=== PATIENT | female | born 1965 | race American Indian/Alaskan Native ===

== ENCOUNTER 2024-10-24 10:42 | Emergency (ER) | payer MEDICAID, SELFPAY ==
[2024-10-24 11:18] VITALS: BP 165/93; PULSE 93; RESP 17; TEMP 36.8; O2SAT 95; BMI 43.4
--- NOTE | 2024-10-24 11:27 | EDNOTE_ITS ---
ED Extremity Problem RME/HPI General Chief complaint: Extremity Problem,Nontraumatic Stated complaint: LEFT LEG/ANKLE CAST COMING APART Time Seen by Provider: 10/24/24 11:27 Arrival date/time: 10/24/24 10:42 59-year-old female presents emergency department today stating that she had an injury to the left ankle on the and she was casted by specialist in [place]. Patient reports that she is a follow-up on the of this month patient reports that she developed a hole on the bottom of the cast and is as ignacio for help with her cast management Limitations: no limitations Related Data Previous Rx's ?Medication ?Instructions ?Recorded acetaminophen 500 mg capsule 1,000 mg (2 x 500 mg) PO Q8HR PRN 02/27/20 pain #60 caps sulfamethoxazole 800 1 tab PO BID #14 tabs mg-trimethoprim 160 mg tablet (Bactrim DS) Allergies Allergy/AdvReac Type Severity Reaction Status Date / Time latex Allergy Unknown DIFF Verified 09/19/23 09:48 BREATHING, MOUTH SWELLS naproxen Allergy Unknown Verified 09/19/23 09:48 tuberculin,PPD,multi-puncture AdvReac Unknown Rash Verified 09/19/23 09:48 Review of Systems Review of Systems Systems Reviewed: All systems reviewed, normal except as documented Constitutional Constitutional: Reports system reviewed and no additional complaints, except as documented, Denies fever(s) and Denies headache(s) Eyes Eyes: Reports system reviewed and no additional complaints, except as documented and Denies blurry vision ENT Ears, Nose, Mouth, and Throat: Reports system reviewed and no additional complaints, except as documented, Denies headache(s), Denies nasal congestion and Denies nasal discharge Cardiovascular Cardiovascular: Reports system reviewed and no additional complaints, except as documented, Denies chest pain and Denies dyspnea Respiratory Respiratory: Reports system reviewed and no additional complaints, except as documented, Denies chest congestion, Denies cough and Denies dyspnea Gastrointestinal Gastrointestinal: Reports system reviewed and no additional complaints, except as documented and Denies abdominal pain Musculoskeletal Musculoskeletal: Reports system reviewed and no additional complaints, except as documented and Reports other (Cast in place left ankle) Integumentary/Breasts Skin/Breast: Reports system reviewed and no additional complaints, except as documented and Denies rash Neurologic Neurologic: Reports system reviewed and no additional complaints, except as documented, Reports as per HPI and Denies headache(s) Past Medical History Past Medical History CARDIAC: Positive Hypertension; Negative Cardiac Disorders or Congestive Heart Failure RESPIRATORY: Negative Chronic Obstructive Pulmonary Disease (COPD) or Asthma GENITOURINARY: Negative Renal Disease ENDOCRINE: Negative Diabetes Mellitus Type 1 or Diabetes Mellitus Type 2 HEMATOLOGIC: Negative Sickle Cell Disease Surgical History SURGICAL: Positive Section Social History SMOKING STATUS: Never smoker SUBSTANCE USE: does not use ED Exam General Limitations: Present no limitations General appearance: Present alert and in no apparent distress Head Head exam: Present atraumatic Eye Eye exam: Present normal appearance, PERRL and EOMI ENT ENT exam: Present normal exam, normal oropharynx and mucous membranes moist Neck Neck exam: Present normal inspection, full ROM and trachea midline Chest Chest inspection: Present normal inspection and symmetric chest wall rise Respiratory Respiratory exam: Present normal lung sounds bilaterally Cardiovascular Cardiovascular exam: Present regular rate, normal rhythm and normal heart sounds Abdominal Exam Abdominal exam: Present soft and normal bowel sounds Extremities Exam Extremities exam: Present tenderness, normal capillary refill and other (Cast in place left leg) Back Exam Back exam: Present normal inspection and full ROM Neurological Exam Neurological exam: Present alert, oriented X3 and CN II-XII intact Psychiatric Psychiatric exam: Present normal affect and normal mood Skin Skin exam: Present warm, dry, intact and normal color Course Quality Measures none Vital Signs Vital signs: Vital Signs Temperature 98.2 F 10/24/24 11:18 Pulse Rate 93 10/24/24 11:18 Respiratory Rate 17 10/24/24 11:18 Blood Pressure 165/93 H 10/24/24 11:18 Pulse Oximetry (%) 95 10/24/24 11:18 Oxygen Delivery Method Room Air 10/24/24 11:18 O2 saturation 95% on room air with normal limits Extremity Problem MDM Narrative MDM Narrative:: 59-year-old female presents emergency department today stating that she had an injury on the and she was casted by specialist in [place]. Patient reports that she is a follow-up on the of this month patient reports that she developed a hole on the bottom of the cast and is asking for help with her cast management Cast shoe applied patient instructed to follow-up with her specialist as soon as possible for emergent concerns to return immediately Patient has no wounds no evidence of infection Patient data External records reviewed:: [facility] previous records Clinical information provided by:: patient Social determinants that could affect healthcare access:: none Patient has the following chronic illnesses:: See history How is presenting disease/condition affected by chronic disease/condition?: caused by Evaluation data The following diagnostics were reviewed and interpreted by me:: other (specify) (N/A) Lab and/or radiology exams considered but not ordered:: Considered not ordered Interpretation Summary: N/A Medications / Prescriptions Medications or Prescriptions considered but not ordered:: No meds Medication administrations:: No meds Consultations Consultation(s) initiated? (list below): No Diagnosis Extremity Problem Differential Diagnosis: other (Cast problem,) Most likely diagnosis given after review of the tests above:: Fracture, cast problem Admission Indicated Admission indicated?: not indicated Admission Request Was there a request for admission?: No Disposition Plan Disposition Plan: Discharge Discharge Attestation Discharge Attestation: The patient and all family members were given an opportunity to ask questions and understood the discharge instructions. Discharge instructions specifically effects, indications for sooner follow up or return to the emergency department, and the expected course of current diagnosis. Patient condition: Stable Discharge Plan Plan Patient Disposition: HOME (Self Care) Disposition Comment: Stable Prescriptions/Referrals Prescriptions/Med Rec: No Action acetaminophen 500 mg capsule 1,000 mg PO Q8HR PRN (Reason: pain) Qty: 60 0RF sulfamethoxazole-trimethoprim [Bactrim DS] 800-160 mg tablet 1 tab PO BID Qty: 14 0RF Problem List Clinical Impression: Problem with fiberglass cast Patient/Caregiver Discharge Instructions Additional Instructions: Please follow-up with your specialist on the as discussed for worsening symptoms return immediately Print Language: Syriac Stand Alone Forms: Tana Award Info., Patient Portal Info Letter PA/FUEL TRUCK DRIVER Supervising Physician PA/ANUP Supervising Physician: Dr dias
== END 2024-10-24 11:36 | disposition home or self-care (01) ==
LOC: SERX 11:35
PROVIDERS: Emergency Provider Emergency Medicine; PCP Family Medicine
DX: T65.831A Toxic effect of fiberglass, accidental (unintentional), initial encounter (principal)
CPT/HCPCS: 99282